=== PATIENT | male | born 2000 | race Caucasian/White ===

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

== ENCOUNTER 2020-04-09 12:16 | Emergency (ER) | payer OTHER ==
[~2020-04-09] VITALS: Ht 170.2 cm; Wt 68.0 kg
[2020-04-09 14:05] VITALS: BP 94/55; Ht 170.2 cm; Wt 68.0 kg
== END 2020-04-09 15:45 | disposition home or self-care (01) ==
LOC: ED 12:16
DX: S46.911A Strain of unspecified muscle, fascia and tendon at shoulder and upper arm level, right arm, initial encounter (principal); W23.0XXA Caught, crushed, jammed, or pinched between moving objects, initial encounter; Y93.89 Activity, other specified; Y92.89 Other specified places as the place of occurrence of the external cause; Y99.8 Other external cause status